=== PATIENT | female | born 1995 | race Caucasian/White ===

== ENCOUNTER 2024-10-15 09:40 | Outpatient (OUT) | payer OTHER, SELFPAY ==
--- OUTSIDE RECORDS SUMMARY | 2024-06-30 16:40 | XMS_ITS ---
Author Organization The [facility] in [place] Address [address] [place] [address] Care Team Providers Care Draw Machine Operator Name Role Phone SYLWIA REECE MD Primary Care Provider Sylwia Reece Unavailable [phone] REASON FOR VISIT mammogram Encounters Encounter Location Date Provider Diagnosis [facility] [address] [place] [address] 06/30/2024 Sylwia Reece Plan Of Treatment No Information Progress Notes * COTTOMartita LDOB:[birth year] (29 yo F)Acc No.[id number]:06/30/2024 Patient: Martita WILLIAMSON :1995 A ge:29 Y S ex:Female [address] [place] [address] * true * Date: Generated for Vick escamilla/Terese/eTransmitting on: 0 10/15/2024 09:47 AM EDT
--- OUTSIDE RECORDS SUMMARY | 2024-09-10 12:35 | XMS_ITS ---
Author Organization The [facility] in [place] Address [address] [place] [address] Care Team Providers Care Head Up Operator Helper Name Role Phone SYLWIA REECE MD Primary Care Provider Sylwia Reece Unavailable [phone] REASON FOR VISIT poison saúl Medications Medication SIG (Take, Route, Frequency, Duration) Notes Start Date End Date Status Triamcinolone Acetonide 0.1 % 1 application Externally bid 09/10/2024 Active predniSONE 20 MG 2 tablets Orally Onc e a day for 5 days 09/10/2024 Active Encounters Encounter Location Date Provider Diagnosis [address] [address] 09/10/2024 Sylwia Reece Plan Of Treatment Medication Medication Name Sig Start Date Stop Date Notes Triamcinolone Acetonide 0.1 % 1 application Externally bid 09/10/2024 predniSONE 20 MG 2 tablets Orally Onc e a day for 5 days 09/10/2024 Progress Notes * Martita COTTO LDOB:[birth year] (29 yo F)Acc No.[id number]:09/10/2024 Patient: Tati SELBY Martita Alan :1995 A ge:29 Y S ex:Female Address:[address] [place] [address] * Refills Start predniSONE Tablet, 20 MG, Orally, 10 Tablet, 2 tablets, Once a day, 5 days Start Triamcinolone Acetonide Cream, 0.1 %, Externally, 60 grams, 1 application, bid, Refills=11 * true * Date: Generated for Vick escamilla/Terese/Nacho on: 0 10/15/2024 09:47 AM EDT
--- OUTSIDE RECORDS SUMMARY | 2024-10-15 04:30 | XMS_ITS ---
Author Organization The [facility] in [place] Address [address] [place] [address] Care Team Providers Care Body Engineer Name Role Phone SYLWIA WINSTON MD Primary Care Provider [phone] Sylwia Winston Unavailable [phone] Allergies Allergen (clinical drug ingredient) Drug/Non Drug Allergy documented on EMR Reaction Allergy Type Onset Date Status Penicillin hives Drug Allergy Active REASON FOR VISIT left hip pain- shooting pains down the leg, Ongoing for 2-3 weeks- has tried IBU/ Tylenol to help Medications Medication SIG (Take, Route, Frequency, Duration) Notes Start Date End Date Status QUEtiapine Fumarate 50 MG 0.25 tablet Or ally Once a day for 90 days Active Lo Loestrin Fe 1 MG-10 MCG / 10 MCG 1 tablet Orally Once a day for 28 days 07/05/2023 Active Meloxicam 15 MG 1 tablet Orally Once a day for 30 days 10/15/2024 Active Social History Tobacco Use: Social History Observation Description Date Details (start date - stop date) Never Smoker NA - NA Tobacco Use/Smoking Question Answer Notes Patient is a nonsmoker Problems Problem Type SNOMED Code ICD Code Onset Dates Problem Status W/U Status Risk Notes Problem Low back pain at multiple sites (M54.50) Active confirmed Problem Arthralgia of the pelvic region and thigh (634867985) Left hip pain (M25.552) Active confirmed Vital Signs Blood pressure systolic 102 mm Hg 10/16/19 25 Blood pressure diastolic 64 mm Hg 025 Height 65 in 10/15/2024 Weight 122.8 lbs 10/15/2024 BMI 20.43 kg/m2 10/15/2024 Encounters Encounter Location Date Provider Diagnosis [facility] [address] [place] [address] 10/15/2024 Sylwia Gomezbrittney Low back pain at multiple sites M54.50 and Left hip pain M25.552 Assessments Encounter Date Diagnosis (ICD Code) Assessment Notes Treatment Notes Treatment Clinical Notes Section Notes 10/15/2024 Low back pain at multiple sites (ICD-10 - M54.50) 10/15/2024 Left hip pain (ICD-10 - M25.552) 10/15/2024 Other Recommended to rest and use a heating pad on the area. Take NSAIDs for pain as needed Plan Of Treatment Medication Medication Name Sig Start Date Stop Date Notes Meloxicam 15 MG 1 tablet Orally Once a day for 30 days 08/2024 Treatment Notes Assessment Notes Other Recommended to rest and use a heating pad on the area. Take NSAIDs for pain as needed Pending Test Test Name Order Date XR HIP LT 2 3V W PELVIS 10/15/2024 XR LSPINE MIN 4 VIEWS 10/15/2024 Medications Administered Medication Instructions Date of Administration Dosage Notes Ketorolac Tromethamine 10/15/2024 60 mg Triamcinolone 40 mg/ml 10/15/2024 80 mg Progress Notes * Martita COTTO LDOB:[birth year] (29 yo F)Acc No.[id number]:10/15/2024 UNLOCKED PROGRESS NOTE Progress Note Patient: Martita WILLIAMSON Provider: Suyapa Winston ([facility] Annie :1995 A ge:29 Y S ex:Female Date:10/15/2024 Address:[address] [place], [place] [address]GauravOHIOHE[facility] CANCER CENTERCV-[id number] Pcp:SYLWIA WINSTON MD Check In:08:30 AM ESTCheck O ut:09:10 AM EST Subjective: * Chief Complaints: * 1 . Left hip pain- shooting pains down the leg. 2. Ongoing for 2-3 weeks- has tried IBU/ Tylenol to help. * HPI: G eneral: Left hip pain no injury - nothgi new actibity sadler pain in ama nd all day long been going on for 2 week and pain [address] way into leg - like electric shocks taking tylenol and motrin for last 2 weeks - heat ice - not helping some rossi riwht laying down and being off. B ack Pain: The patient complains of -. The symptoms have been present for 1-2 days. The patient believes symptoms are injury related No. The symptoms are mild. Symptomatic treatment has included heating pad, stretching. Associated symptoms include None. * ROS: G eneral/Constitutional: Lightheadedness d enies. C hange in appetite d enies. W eight Change d enies. C ardiovascular: Irregular heartbeat d enies. S welling in hands/feet?denies. R espiratory: Shortness of breath d enies. S hortness of breath with exertion d enies. W heezing d enies. M usculoskeletal: Comments S adina [facility] for details. N eurologic: Dizziness d enies. F ainting d enies. H eadache?denies. * Medical History: A trial septal defect, unspecified, Acne vulgaris, Dysfunctional uterine bleeding, Herpes simplex, Migraine. * Surgical History: T ONSILLECTOMY,UNDER 14YRS , Heart surgery as a baby , breast augmentation 2018. * Hospitalization/Major Diagno stic Procedure: D enies Past Hospitalization. * Family History: F ather: alive. M other: alive, anxiety. B rother(s): alive. S ister(s): alive.?Son(s): alive. D aughter(s): alive. 4 brother(s) , 1 sister(s) - healthy. 1 son(s) , 2 daughter(s) - healthy. . * Social History: T obacco Use: T obacco Use/Smoking P atient is a n onsmoker * Medications: T aking Lo Loestrin Fe(Norethin-Eth Estrad-Fe Biphas) 1 MG-10 MCG / 10 MCG Tablet 1 tablet Orally Once a day , Taking QUEtiapine Fumarate 50 MG Tablet 0.25 tablet Orally Once a day , Discontinued CeleXA(Citalopram Hydrobromide) 40 MG Tablet 1 tablet Orally Once a day , Discontinued predniSONE 20 MG Tablet 2 tablets Orally Once a day , Discontinued Triamcinolone Acetonide 0.1 % Cream 1 application Externally bid , Discontinued valACYclovir HCl 500 MG Tablet 1 tablet Orally tid , Discontinued Venlafaxine HCl ER 75 MG Capsule Extended Release 24 Hour TAKE 1 CAPSULE BY MOUTH EVERY DAY WITH FOOD FOR 30 DAYS , Medication List reviewed and reconciled with the patient * Allergies: P enicillin: hives - Allergy. Objective: * Vitals: W t:122.8lbs, Ht: 65 in, BP:102/64mm Hg, BMI:20.43Index, Ht-cm: 165.1 cm, Wt-k.7 kg. * Examination: G eneral Examination: GENERAL APPEARANCE: i n no acute distress, well developed, well nourished. LUNGS: clear to auscultation bilaterally. CARDIO: S1, S2 normal, no murmurs, rubs, gallops. MUSCULOSKELETAL: L eft hip wiht decreased ROM on SLR - and betwith wiht knee flexion consistent with nerve impingement. EXTREMITIES: no clubbing, cyanosis, or edema. NEUROLOGIC: alert, oriented to time, place, & person.? Assessment: * Assessment: 1. L ow back pain at multiple sites - M54.50 (Primary) 2 . L eft hip pain - M25.552 Plan: * Treatment: 2. O thers Notes: Recommended to rest and use a heating pad on the area. Take NSAIDs for pain as needed ? * Therapeutic Injections: Triamcinolone 40 mg/ml : 80 mg (Route: Intramuscular) given by Maddie Parra SA on left gluteus (Low back pain at multiple sites) Ketorolac Tromethamine : 60 mg (Route: Intramuscular) given by Maddie Parra SA on left gluteus (Low back pain at multiple sites) * Procedure Codes: J 3301 TMC ACET,PER 10MG., J1885 TORADOL, PER 15 MG, 33226 THERAP.INJ. OF MED. INTRAMUSCULAR OR SUBCUTANEOUS * * Electronic signature of Sylwia Winston MD, [id number] on 10/15/2024 at 09:47 AM EDT Sign off status: Pending Visit Status: William BUNN (Check Out) * Provider: Suyapa Winston (SAMANTHA)MD Date: 0 10/15/2024 Generated for Vick escamilla/Terese/Karolinaitting on: 0 10/15/2024 09:47 AM EDT History and Physical Notes * HPI (History of Present Illness) Category Sub-Category Detail Notes Category Not es General Left hip pain no injury - nothgi new actibity sadler pain in ama nd all day long been going on for 2 week and pain all way into leg - like electric shocks taking tylenol and motrin for last 2 weeks - heat ice - not helping some rossi riwht laying down and being off Examination Category Sub-Category Detail Notes Category Not es General Examination GENERAL APPEARANCE: in no ac cheesh-na distress, well developed, well nourished CARDIO: S1, S2 normal, no mu rmurs, rubs, gallops LUNGS: clear to auscultatio n bilaterally NEUROLOGIC: alert, oriented to t ryan, place, & person EXTREMITIES: no clubbing, cyanosi s, or edema MUSCULOSKELETAL: Left hip wiht decrea sed ROM on SLR - and betwith wiht knee flexion consistent with nerve impingement
--- OUTSIDE RECORDS SUMMARY | 2024-10-15 09:48 | XMS_ITS | Patient Health Record ---
Author Organization The [facility] in [place] Address [address] [place] [address] Care Team Providers Care Night Custodian Name Role Phone SYLWIA WINSTON MD Primary Care Provider Sylwia Winston Unavailable [phone] Allergies Allergen (clinical drug ingredient) Drug/Non Drug Allergy documented on EMR Reaction Allergy Type Onset Date Status Penicillin hives Drug Allergy Active Reason For Referral No Information Medications Medication SIG (Take, Route, Frequency, Duration) Notes Start Date End Date Status Meloxicam 15 MG 1 tablet Orally Once a day for 30 days 10/15/2024 Active QUEtiapine Fumarate 50 MG 0.25 tablet Or ally Once a day for 90 days Active Lo Loestrin Fe 1 MG-10 MCG / 10 MCG 1 tablet Orally Once a day for 28 days 07/05/2023 Active Immunizations Vaccine Route Administration Date Status Comme nts DTap, Unspecified Unknown 1995 Administered DTap, Unspecified Unknown 11/07/2002 Administered Hep B, Adult, Dose 1 Unknown 1995 Administered MMR II Unknown 11/07/2002 Administered Polio Virus, IPV Unknown 1995 Administered Polio Virus, IPV Unknown 11/07/2002 Administered Tdap (Boostrix) Unknown 12/09/2009 Administered Tetanus toxoid, absorbed - historic Unknown 09/20/2021 Administered Social History Tobacco Use: Social History Observation Description Date Details (start date - stop date) Never Smoker NA - NA Tobacco Use/Smoking Question Answer Notes Patient is a nonsmoker Alcohol Screen (Audit-C) Question Answer Notes Did you have a drink contain ing alcohol in the past year? Yes How often did you have a dri nk containing alcohol in the past year? Less than monthly (1 point) Points 1 Interpretation Negative AUDIT-C (Standard) Question Answer Notes Did you have a drink containing alcohol in the p ast year? No Points 0 Interpretation Negative Problems Problem Type SNOMED Code ICD Code Onset Dates Problem Status W/U Status Risk Notes Problem Acne (09561016) Acne (L70.9) Active confirmed Problem Anxiety (58125993) Anxiety (F41.9) Active confirmed Problem Depression (715875917) Depression (F32.9) Active confirmed Problem Insomnia (736586857) Insomnia (G47.00) Active confirmed Problem Well adult (921557341) Well adult (Z00.00) Active confirmed Problem Arthralgia of the pelvic region and thigh (304811790) Left hip pain (M25.552) Active confirmed Problem Nevus (1814778147) Nevus (D22.9) Active confirmed Problem Low back pain (finding) (091814268) Low back pain at multiple sites (M54.50) Active confirmed Vital Signs Blood pressure diastolic 64 mm Hg 10/15/2024 Height 65 in 10/15/2024 Blood pressure systolic 102 mm Hg 10/15/2024 Weight 122.8 lbs 10/15/2024 BMI 20.43 kg/m2 10/15/2024 Procedures Procedure Date Ordered Date Performed Result Body Sit e CARDIO Echocardiogram 12/24/2023 N/A Encounters Encounter Location Date Provider Diagnosis [address] [place] [address] 10/29/2023 Sylwia Winston [address] [address] 09/10/2024 Sylwia Winston [facility] [address] [place] [address] 03/19/2024 Sylwia Winston Pre-employment healt h screening examination Z02.1 [facility] [address] [place] [address] 06/09/2024 Sylwia Winston Breast pain N64.[address] [address] 06/18/2024 Sylwia Winston Abnormal mammogram R92.[address] [place] [address] 06/23/2024 Sylwia Winston [facility] [address] [place] [address] 06/25/2024 Sylwia Winston [facility] [address] [place] [address] 06/30/2024 Sylwia Winston [facility] [address] [place] [address] 10/15/2024 Sylwia Winston Low back pain at multiple sites M54.50 and Left hip pain M25.552 [facility] [address] [place] [address] 11/08/2023 Sylwia Winston Insomnia G47.00 ; Depression F32.9 and Anxiety F41.9 [facility] [address] [place] [address] 12/24/2023 Sylwia Winston Well adult Z00.00 Assessments Encounter Date Diagnosis (ICD Code) Assessment Notes Treatment Notes Treatment Clinical Notes Section Notes 11/08/2023 Insomnia (ICD-10 - G47.00) 11/08/2023 Depression (ICD-10 - F32.9) 12/24/2023 Well adult (ICD-10 - Z00.00) 10/15/2024 Low back pain at multiple sites (ICD-10 - M54.50) 10/15/2024 Left hip pain (ICD-10 - M25.552) 03/19/2024 Pre-employment health screening examination (ICD-10 - Z02.1) 06/09/2024 Breast pain (ICD-10 - N64.4) 06/18/2024 Abnormal mammogram (ICD-10 - R92.8) 11/08/2023 Anxiety (ICD-10 - F41.9) 10/15/2024 Other Recommended to rest and use a heating pad on the area. Take NSAIDs for pain as needed Plan Of Treatment Pending Test Test Name Order Date CMP (COMPLETE METABOLIC PANEL) 4 HEMOGLOBIN A1C (GLYCO) 08/16/2023 LIPID PANEL (CHOL/TRIG/HDL/LDL) 08/16/19 24 CBC WITH DIFF 08/16/2023 CARDIO Echocardiogram 12/24/2023 RUBEOLA AB SCREEN 03/19/2024 STREPT SCREEN 03/19/2023 XR HIP LT 2 3V W PELVIS 10/15/2024 XR LSPINE MIN 4 VIEWS 10/15/2024 THYROID PANEL (T4/TSH/FREE T3) BI MAMMOGRAM DIAGNOSTIC TOMOSYNTHESIS BI LATERAL 06/09/2024 BI US BREAST COMPLETE BILATERAL 06/19/19 25 Hep B Surface Ab 03/19/2024 MEASLES/MUMPS/RUBELLA/VARICELLA 03/19/19 25 Insurance Providers Payer Name Payer Address Payer Phone Subscriber Number Group Number Insured Name Patient Relationship to Insured Coverage Start Date Coverage End Date [employer] [place] [employer] [address] [place] [address] [phone] [id number] Martita Lu Self - patient is the insured Medications Administered Medication Instructions Date of Administration Dosage Notes Ketorolac Tromethamine 10/15/2024 60 mg Triamcinolone 40 mg/ml 10/15/2024 80 mg Medical (General) History Medical History History ICD Code Atrial septal defect, unspecified Q21.10 Acne vulgaris L70.0 Dysfunctional uterine bleeding N93.8 Herpes simplex B00.9 Migraine G43.909 Surgical History Surgery Date(Month/Year) TONSILLECTOMY,UNDER 12YRS breast augmentation 2018 Heart surgery as a baby
--- NOTE | 2024-10-15 09:50 | XR_ITS ---
The [address] [address] Patient Name: REINALDO COTTO MRN: [id number] date: 1995 Sex: F Assigned Patient Location: [facility] Current Patient Location: [facility] Accession/Order Number: [id number] Exam Date: 10/15/2024 10:13 Report Date: 10/15/2024 10:16 At the request of: SHENG WINSTON MD Procedure: XR lumbar spine min 4V Left hip 2 views with one view pelvis. Lumbar spine 4 views Reason for exam: Left-sided low back pain radiating down left hip and left knee for 3 weeks. COMPARISON: None. FINDINGS: Lumbar spine: Vertebral body heights appear maintained. No significant disc space narrowing. Facet joints appear unremarkable. Left hip/pelvis: No acute bony process. Minimal degenerative changes involving the SI joints and pubic symphysis. Joint spaces of the hips appear maintained. XR/XR hip LT 2V w/ pelvis Impression: Lumbar spine demonstrates no acute bony process or significant degenerative change. Left hip/pelvis demonstrates no acute bony process with minimal degenerative change present. Impression dictated by: Logan Cornejo Jr., D.O. 10/15/2024 10:16 AM Dictation Location: [place] [address] Electronically authenticated by: [id number] Y Date: 10/15/2024 10:16
--- NOTE | 2024-10-15 09:50 | XR_ITS ---
The [address] [address] Patient Name: REINALDO COTTO MRN: [id number] date: 1995 Sex: F Assigned Patient Location: [facility] Current Patient Location: [facility] Accession/Order Number: [id number] Exam Date: 10/15/2024 10:13 Report Date: 10/15/2024 10:16 At the request of: SHENG WINSTON MD Procedure: XR lumbar spine min 4V Left hip 2 views with one view pelvis. Lumbar spine 4 views Reason for exam: Left-sided low back pain radiating down left hip and left knee for 3 weeks. COMPARISON: None. FINDINGS: Lumbar spine: Vertebral body heights appear maintained. No significant disc space narrowing. Facet joints appear unremarkable. Left hip/pelvis: No acute bony process. Minimal degenerative changes involving the SI joints and pubic symphysis. Joint spaces of the hips appear maintained. XR/XR lumbar spine min 4V Impression: Lumbar spine demonstrates no acute bony process or significant degenerative change. Left hip/pelvis demonstrates no acute bony process with minimal degenerative change present. Impression dictated by: Logan Cornejo Jr., D.O. 10/15/2024 10:16 AM Dictation Location: [place] [address] Electronically authenticated by: [id number] Y Date: 10/15/2024 10:16
== END 2024-10-15 09:41 | disposition home or self-care (01) ==
LOC: RAD 09:45
PROVIDERS: PCP Family Medicine; Visit Provider Family Medicine
DX: M54.50 Low back pain, unspecified (principal)
CPT/HCPCS: 72110; 73502